=== PATIENT | female | born 1995 | race Caucasian/White ===

== ENCOUNTER 2021-05-07 17:55 | Emergency (ER) | payer OTHER | END 2021-05-07 20:40 | disposition home or self-care (01) | LOC: ER1 17:55 | DX: J06.9 Acute upper respiratory infection, unspecified (principal); Z20.822 Contact with and (suspected) exposure to COVID-19 | CPT/HCPCS: 87081; 87880; 99284; U0003 ==

== ENCOUNTER 2022-05-29 23:09 | Emergency (ER) | payer OTHER ==
[2022-05-30] MEDS ORDERED: IBUPROFEN600 MG PO (01:46)
== END 2022-05-30 01:56 | disposition home or self-care (01) ==
LOC: ER1 23:09
DX: S90.31XA Contusion of right foot, initial encounter (principal); F17.290 Nicotine dependence, other tobacco product, uncomplicated; W19.XXXA Unspecified fall, initial encounter; Y92.009 Unspecified place in unspecified non-institutional (private) residence as the place of occurrence of the external cause
CPT/HCPCS: 73610; 73630; 99283